=== PATIENT | female | born 2000 | race Asian ===

== ENCOUNTER 2022-08-09 21:40 | Emergency (ER) | payer BC, SELFPAY ==
--- NOTE | ~2022-08-09 | XR_ITS ---
EXAMINATION: XR ELBOW, RIGHT CLINICAL INFORMATION: Fall. Pain. COMPARISON: None available. TECHNIQUE: AP, lateral, and oblique views of the right elbow. FINDINGS: There is a mild laterally impacted fracture of the radial neck. No additional fractures. No dislocation. An elbow joint effusion is present. XR/XR elbow RT 2V IMPRESSION: Mildly impacted radial neck fracture.
--- NOTE | ~2022-08-09 | CT_ITS ---
EXAMINATION: CT HEAD WITHOUT CONTRAST CLINICAL INFORMATION: Fall. Loss of consciousness. COMPARISON: None available. TECHNIQUE: Contiguous axial imaging was performed from the skull base to vertex without intravenous administration of contrast. This CT examination was performed using dose optimization techniques as appropriate, variously including the following: *Automated exposure control. *Adjustment of mA and/or kV according to patient size (this includes techniques or standardized protocols for targeted exams where dose is matched to indication/reason for exam; i.e. extremities or head). *Use of iterative reconstruction technique. DLP: 620 mGy-cm FINDINGS: There is no evidence of acute intracranial hemorrhage or edematous territorial infarction. Ceja-white matter differentiation is preserved. There is no abnormal attenuation within the brain parenchyma. The ventricles are normal in morphology and size. No evidence for obstructive hydrocephalus. No abnormal mass effect or midline shift. No extra-axial fluid collections. No acute soft tissue or osseous abnormalities. The mastoid air cells and visualized paranasal sinuses are clear. CT/CT head/brain wo IV con IMPRESSION: No evidence of acute intracranial hemorrhage or edematous territorial infarction.
[2022-08-09 21:45] VITALS: BP 137/85; BP 148/88; PULSE 103; PULSE 97; RESP 18; TEMP 37.1; O2SAT 100; O2SAT 98; BMI 27.4
[2022-08-09 22:45] VITALS: BP 128/77; PULSE 110; RESP 16; TEMP 36.9; O2SAT 100
[2022-08-10] MEDS: Acetaminophen 325 MG TABLET 975 MG PO (00:22)
--- NOTE | 2022-08-10 01:11 | ED.FALL ---
HPI - Fall General Chief Complaint: Fall Stated Complaint: trip and fall Time Seen by Provider: 08/09/22 22:08 Source: patient Mode of arrival: ambulatory Limitations: no limitations History of Present Illness HPI Narrative: Patient comes to the emergency room complaining of right elbow pain. Patient states that earlier today, she fell down the stairs, states that she might have lost consciousness, denies headache, no neck pain, no lacerations, not on blood thinners. Patient complaining that her right elbow is starting to get swollen and is very painful to touch, worse with movement. Related Data Previous Rx's Medication Instructions Recorded ketorolac 10 mg tablet 10 mg PO TID PRN pain 5 days #10 08/10/22 tabs Allergies Allergy/AdvReac Type Severity Reaction Status Date / Time No Known Allergies Allergy Verified 08/09/22 23:00 Review of Systems Review of Systems: Constitutional : No Weight loss, No Fever, No Chills, No Night Sweats, No Fatigue, No Malaise ENT/Mouth : No Hearing loss, No Ear Pain, No Nasal Congestion, No Sinus Pain, No Hoarseness, No sore throat, No Rhinorrhea, No Swallowing Difficulty Eyes: No Eye Pain, No Swelling, No Redness, No Foreign Body, No Discharge, No Vision Changes Cardiovascular : No Chest Pain, No SOB, No Dyspnea on Exertion, No Orthopnea, No Edema, No Palpitations Respiratory : No Cough, No Sputum, No Wheezing, No Smoke Exposure, No Dyspnea Gastrointestinal : No Nausea, No Vomiting, No Diarrhea, No Constipation, No abdominal Pain, No Hematochezia, No Melena Genitourinary : no irregular bleeding, No Dysuria, No Urinary Frequency, No Hematuria, No Urinary Incontinence, No Urgency, No Flank Pain, No Urinary Flow Changes, No Hesitancy Musculoskeletal : Complaining of right elbow pain, No Myalgias, No Joint Swelling Skin : No Skin Lesions, No rash Neuro : No Weakness, No Numbness, No Paresthesias, possible Loss of Consciousness, No Dizziness, No Headache Psych : No Anxiety/Panic, No Depression, No SI/HI/AH/VH, No Social Issues, Heme/Lymph: No Bruising, No Bleeding,No Lymphadenopathy Endocrine : No Polyuria, No Polydipsia, No Temperature Intolerance PMFSH Social History Social History Smoked in Last 30 Days: No Use of substances other than those prescribed or required for medical reasons: No Advance Directives: No Advance Directives Information Provided: Yes Physical Exam Vital Signs: Vital Signs: Last Vital Signs Temp 98.4 F 08/09/22 22:45 Pulse 110 H 08/09/22 22:45 Resp 16 08/09/22 22:45 BP 128/77 08/09/22 22:45 Pulse Ox 100 08/09/22 22:45 O2 Del Method Room Air 08/09/22 22:45 BMI result Body Mass Index 27.4 Const: Other: Appearance: Alert. Oriented X3. No acute distress. Eyes: Pupils equal, round and reactive to light. ENT: Pharynx normal. Neck: Normal inspection. Neck supple. No lymph nodes noted. No crepitus, no palpable step-offs, normal range of motion with flexion and extension CVS: Normal heart rate and rhythm. Pulses normal. Normal S1 and S2 Respiratory: No respiratory distress. Breath sounds normal. No Wheezing. No rales Abdomen: Soft and nontender. No rigidity. No distention. Skin: Skin warm and dry. Normal skin color. Normal skin turgor. Extremities: No lower extremity edema. Plan to the elbow, unable to flex and extend due to pain Neuro: Oriented X 3. No motor deficit. No sensory deficit. Moving all extremities. No slurred speech. CN 2 through 12 grossly intact Psych: calm, cooperative, normal affect Medications Administered Discontinued Medications Generic Name Dose Route Start Last Admin Trade Name Freq PRN Reason Stop Dose Admin Acetaminophen 975 mg 08/10/22 00:07 08/10/22 00:22 Acetaminophen 325 Mg Tablet PO 08/10/22 00:08 975 mg ONCE ONE Administration Medical Decision Making Medical Decision Making [facility] Narrative: -head CT my interpretation: No intracranial bleed -my interpretation of x-ray of the elbow, positive sail sign, there is a fracture of the ulnar head -patient was given IM Toradol -patient was placed in a posterior long-arm splint and a sling -patient instructed to follow-up with orthopedics. Patient states that she lives out of town, and will follow up with her own orthopedics surgeon. Radiology Impression Discussion of test interpretation with radiology: I have reviewed the radiologist's reading. Radiologist Impression: FINDINGS: There is a mild laterally impacted fracture of the radial neck. No additional fractures. No dislocation. An elbow joint effusion is present. XR/XR elbow RT 2V IMPRESSION: Mildly impacted radial neck fracture. FINDINGS: There is no evidence of acute intracranial hemorrhage or edematous territorial infarction. Ceja-white matter differentiation is preserved. There is no abnormal attenuation within the brain parenchyma. The ventricles are normal in morphology and size. No evidence for obstructive hydrocephalus. No abnormal mass effect or midline shift. No extra-axial fluid collections. No acute soft tissue or osseous abnormalities. The mastoid air cells and visualized paranasal sinuses are clear. ? CT/CT head/brain wo IV con IMPRESSION: No evidence of acute intracranial hemorrhage or edematous territorial infarction. Discharge Plan Discharge Clinical Impression: Fracture of radial neck, Fall Patient Disposition: Home, Self-Care Instructions: Elbow Fracture (ED) Additional Instructions: Please follow-up with your primary care physician tomorrow. If you have any worsening or new symptoms, please return to the emergency room or call 911 Prescriptions: New ketorolac 10 mg tablet 10 mg PO TID PRN (Reason: pain) 5 Days Qty: 10 0RF Rx Instructions: Do not use this medication with a leaf, Motrin, NSAIDs, okay to use Tylenol if needed Referrals: Cleo Fontana PA-C [Physician [employer]] - 08/12/22
[2022-08-10] MEDS: Ketorolac Tromethamine 60 MG/2 ML VIAL IM (01:19)
--- NOTE | 2022-08-10 02:32 | MHC.EDTECH ---
This Tech applied a posterior splint to patients right arm , Patient tolerated procedure well, assessed for pulses, CMS,and placement. Placement of splint approved by provider upon discharge.RN aware
[2022-08-10 02:43] VITALS: BP 130/72; PULSE 92; RESP 16; TEMP 36.8; O2SAT 98
== END 2022-08-10 02:44 | disposition home or self-care (01) ==
PROVIDERS: Emergency Provider Emergency Medicine
DX: S52.131A Displaced fracture of neck of right radius, initial encounter for closed fracture (principal); R51.9 Headache, unspecified; W10.9XXA Fall (on) (from) unspecified stairs and steps, initial encounter; Y93.9 Activity, unspecified; Y92.9 Unspecified place or not applicable; Y99.9 Unspecified external cause status
CPT/HCPCS: 29105; 70450; 73070; 96372; 99284; J1885